=== PATIENT | female | born 1990 | race Asian ===

== ENCOUNTER 2021-09-25 20:48 | Inpatient (IN) | payer BC ==
[~2021-09-25] VITALS: Ht 170.2 cm; Wt 55.3 kg
[2021-09-25] MEDS ORDERED: ONDANSETRON HCL/PF 4 MG/2 ML VIAL ONE (22:43)
[2021-09-25 22:57] LABS: BASOPHILS % (AUTO) 0.2 % (0.0-2.0); EOSINOPHILS % (AUTO) 0.2 % (0.0-6.0); HEMATOCRIT 42 % (33-45); HEMOGLOBIN 14.2 g/dL (11.5-14.8); LYMPHOCYTES # (AUTO) 0.7 K/uL (0.8-4.8); LYMPHOCYTES % (AUTO) 3.5 % (20.0-44.0); MEAN CORPUSCULAR HGB CONC 34 g/dl (31.0-36.0); MEAN CORPUSCULAR VOLUME 94 fL (82-100); MONOCYTES # (AUTO) 1.3 K/uL (0.1-1.30); MONOCYTES % (AUTO) 6.5 % (2.0-12.0); NEUTROPHILS # (AUTO) 17.9 K/uL (1.8-8.9); NEUTROPHILS % (AUTO) 89.6 % (43.0-81.0); PLATELET COUNT (AUTO) 279 K/uL (150-450); RED BLOOD CELL COUNT(AUTO) 4.49 MIL/uL (4.0-5.2); WHITE BLOOD COUNT (AUTO) 19.9 K/uL (4.3-11.0)
[2021-09-25 22:59] LABS: BILIRUBIN,URINE MODERATE (NEGATIVE); COLOR,URINE DARK YELLOW (YELLOW); LEUKOCYTE ESTERASE ,URINE NEGATIVE (NEGATIVE); NITRITE, URINE NEGATIVE (NEGATIVE); PROTEIN,URINE 30 mg/dl (NEGATIVE); UGLUCOSE NEGATIVE (NEGATIVE); UROBILINOGEN,URINE 0.2 EU/dL (0.2)
[2021-09-25] MEDS ORDERED: ONDANSETRON HCL/PF 4 MG/2 ML VIAL IV ONE (23:00)
[2021-09-25] MEDS ORDERED: IV NS 0.9% 1,000 ML IV ONE (23:00)
[2021-09-25 23:24] LABS: BACTERIA,URINE Moderate /HPF (None Seen); MUCUS,URINE Many /LPF (None Seen); SQUAMOUS EPITHELIAL CELL,UR Moderate /HPF (None Seen)
[2021-09-25 23:24] LABS: ALBUMIN 3.7 g/dL (3.4-5.0); BILIRUBIN,DIRECT 0.2 mg/dL (0.0-0.2); BILIRUBIN,TOTAL 0.9 mg/dL (0.2-1.0); CALCIUM, SERUM 9.5 mg/dL (8.5-10.1); CREATININE 1.2 mg/dL (0.6-1.3); POTASSIUM 3.4 mmol/L (3.5-5.1); TOTAL PROTEIN, SERUM 8.2 g/dL (6.4-8.2)
[2021-09-26] MEDS ORDERED: MORPHINE SULFATE INJ 2 MG/ML DISP.SYRIN IV PRN (01:30)
[2021-09-26] MEDS ORDERED: IV NS 0.9% 1,000 ML IV SCH (01:30)
[2021-09-26] MEDS ORDERED: ONDANSETRON HCL/PF 4 MG/2 ML VIAL IVP PRN (01:30)
[2021-09-26] MEDS ORDERED: ACETAMINOPHEN 325 MG TABLET PO PRN (01:30)
[2021-09-26] MEDS ORDERED: CEFTRIAXONE 1GM BAG (ER ONLY) 1 GM/50 ML PIGGYBACK IV ONE (02:00)
[2021-09-26] MEDS ORDERED: CEFTRIAXONE 1GM BAG (ER ONLY) 50 ML IV ONE (03:01)
[2021-09-26] MEDS ORDERED: MORPHINE SULFATE INJ 2 MG/ML DISP.SYRIN ONE (03:02)
[2021-09-26] MEDS ORDERED: ZOSYN IVPB 3.375 G in IV D5W 50ml IV SCH (03:30)
[2021-09-26] MEDS ORDERED: PIPERACILLIN /TAZOBACTAM 3.375 G VIAL IV ONE (03:33)
[2021-09-26] MEDS ORDERED: oxyCODONE/APAP (5/325 MG) 1 UDTAB TABLET ONE (03:57)
[2021-09-26] MEDS ORDERED: oxyCODONE/APAP (5/325 MG) 1 UDTAB TABLET PO ONE (04:30)
[2021-09-26] MEDS ORDERED: ANESTHESIA TRAY IN PYXIS 1 EA TRAY MC ONE (06:54)
[2021-09-26] MEDS ORDERED: BUPIVACAINE MPF W/EPI 0.25% 30 ML VIAL ONE (06:54)
[2021-09-26] MEDS ORDERED: FENTANYL PF 100MCG/2ML AMPUL ONE ×3 (07:03→09:05)
[2021-09-26] MEDS ORDERED: ROCURONIUM BROMIDE 50 MG/5 ML ONE (07:03)
[2021-09-26] MEDS ORDERED: MIDAZOLAM HCL 2 MG/2ML VIAL ONE (07:03)
[2021-09-26] MEDS ORDERED: ONDANSETRON HCL/PF 4 MG/2 ML VIAL ONE (08:44)
[2021-09-26] MEDS: ENOXAPARIN SODIUM 40 MG/0.4 ML DISP.SYRIN SQ SCH (09:00)
[2021-09-26] MEDS ORDERED: SCOPOLAMINE PATCH 1 MG/72HR TD ONE (09:30)
[2021-09-26] MEDS: MORPHINE SULFATE INJ 2 MG/ML DISP.SYRIN IV PRN ×4 (10:59→18:36)
[2021-09-26] MEDS: ZOSYN IVPB 3.375 G in IV D5W 50ml IV SCH ×2 (12:12→17:43)
[2021-09-26] MEDS: IV NS 0.9% 1,000 ML IV PRN (15:49)
[2021-09-26 16:00] VITALS: BP 107/74
[2021-09-26 20:00] VITALS: BP 106/71
[2021-09-26] MEDS: KETOROLAC TROMETHAMINE INJ 30 MG/ML VIAL IV PRN (21:06)
[2021-09-26] MEDS: HYDROCODONE/APAP 10/325MG TABLET PO PRN (22:55)
[2021-09-26] MEDS ORDERED: MENTHOL/CETYLPYRD (CEPACOL) 1 LOZ LOZENGE PO PRN (23:30)
[2021-09-26] MEDS ORDERED: MAGNESIUM OXIDE 400 MG TABLET PO SCH (23:30)
[2021-09-27] MEDS: IV NS 0.9% 1,000 ML IV PRN ×2 (00:12→17:26)
[2021-09-27] MEDS: ZOSYN IVPB 3.375 G in IV D5W 50ml IV SCH ×4 (00:12→17:25)
[2021-09-27] MEDS ORDERED: ZOLPIDEM TARTRATE 5 MG TABLET PO PRN (00:30)
[2021-09-27] MEDS: MORPHINE SULFATE INJ 2 MG/ML DISP.SYRIN IV PRN ×2 (02:19→06:24)
[2021-09-27 06:54] LABS: BASOPHILS % (AUTO) 0.1 % (0.0-2.0); EOSINOPHILS % (AUTO) 0.1 % (0.0-6.0); HEMATOCRIT 31 % (33-45); HEMOGLOBIN 10.6 g/dL (11.5-14.8); LYMPHOCYTES # (AUTO) 0.6 K/uL (0.8-4.8); LYMPHOCYTES % (AUTO) 4.2 % (20.0-44.0); MEAN CORPUSCULAR HGB CONC 34 g/dl (31.0-36.0); MEAN CORPUSCULAR VOLUME 95 fL (82-100); MONOCYTES # (AUTO) 0.9 K/uL (0.1-1.30); MONOCYTES % (AUTO) 6.5 % (2.0-12.0); NEUTROPHILS # (AUTO) 11.9 K/uL (1.8-8.9); NEUTROPHILS % (AUTO) 89.1 % (43.0-81.0); PLATELET COUNT (AUTO) 224 K/uL (150-450); RED BLOOD CELL COUNT(AUTO) 3.28 MIL/uL (4.0-5.2); WHITE BLOOD COUNT (AUTO) 13.4 K/uL (4.3-11.0)
[2021-09-27] MEDS ORDERED: FLUO20CA36 PO (07:38)
[2021-09-27] MEDS ORDERED: BUPR-54 PO (07:38)
[2021-09-27] MEDS ORDERED: ZOLP10TA2 PO (07:38)
[2021-09-27 07:48] LABS: ALBUMIN 2.4 g/dL (3.4-5.0); BILIRUBIN,TOTAL 0.3 mg/dL (0.2-1.0); CALCIUM, SERUM 8.5 mg/dL (8.5-10.1); CREATININE 0.6 mg/dL (0.6-1.3); PHOSPHORUS 2.9 mg/dL (2.5-4.9); POTASSIUM 3.6 mmol/L (3.5-5.1)
[2021-09-27 08:16] VITALS: BP 108/69
[2021-09-27] MEDS: ENOXAPARIN SODIUM 40 MG/0.4 ML DISP.SYRIN SQ SCH (08:52)
[2021-09-27] MEDS: HYDROCODONE/APAP 10/325MG TABLET PO PRN ×2 (08:59→17:25)
[2021-09-27] MEDS: KETOROLAC TROMETHAMINE INJ 30 MG/ML VIAL IV PRN ×2 (12:04→19:08)
[2021-09-27 16:10] VITALS: BP 109/65
[2021-10-03] MEDS ORDERED: CIPR-262 PO (14:45)
[2021-10-03] MEDS ORDERED: METR500T PO (14:45)
== END 2021-09-27 20:00 | disposition left against medical advice (07) | DRG 853 ==
LOC: ER 20:50 → TRANSITION 09-26 02:52 → UNDOADMIN 09-26 02:52 → MED 09-26 07:32
PROVIDERS: ADMIT Student in an Organized Health Care Education/Training Program; ATTEND Student in an Organized Health Care Education/Training Program
PROC: 0DTJ4ZZ Resection of Appendix, Percutaneous Endoscopic Approach (ICD-10-PCS; principal; 2021-09-26)
DX: A41.9 Sepsis, unspecified organism (principal); K35.32 Acute appendicitis with perforation, localized peritonitis, and gangrene, without abscess; E87.1 Hypo-osmolality and hyponatremia; Z20.822 Contact with and (suspected) exposure to COVID-19; E87.6 Hypokalemia
CPT/HCPCS: 36415; 74018; 80053-TC; 80076-TC; 81001; 83605-TC; 83690-TC; 83735-TC; 84100-TC; 84703-TC; 85025-TC; 87070-TC; 87075-TC; 87081-TC; 87086-TC; 87186-TC; 88304-TC; C9803; G0378; J0330; J0690; J0696; J1100; J1650; J1885; J2250; J2270; J2405; J2543; J2704; J3010; J3490; J7030; J7060

== ENCOUNTER 2021-10-01 13:27 | Inpatient (IN) | payer BC ==
[~2021-10-01] VITALS: Ht 170.2 cm; Wt 58.5 kg
[~2021-10-01 13:27] MED LIST: BUPR-54 PO; FLUO20CA36 PO; ZOLP10TA2 PO
--- NOTE | 2021-10-01 13:40 | NUR ---
To ER bed 9, "Had Appy surgery last 09/26 Still having pain on site. Feel Nauseous/vomit", p/s 02/18, breathing even and non labored, made comfortable, awaiting md mccoy
[2021-10-01 14:23] LABS: BASOPHILS # (AUTO) 0.1 K/uL (0.0-0.2); BASOPHILS % (AUTO) 0.6 % (0.0-2.0); EOSINOPHILS % (AUTO) 1.2 % (0.0-6.0); HEMATOCRIT 38 % (33-45); HEMOGLOBIN 12.6 g/dL (11.5-14.8); LYMPHOCYTES # (AUTO) 1.1 K/uL (0.8-4.8); LYMPHOCYTES % (AUTO) 11.2 % (20.0-44.0); MEAN CORPUSCULAR HGB CONC 33 g/dl (31.0-36.0); MEAN CORPUSCULAR VOLUME 95 fL (82-100); MONOCYTES % (AUTO) 10.2 % (2.0-12.0); NEUTROPHILS # (AUTO) 7.5 K/uL (1.8-8.9); NEUTROPHILS % (AUTO) 76.8 % (43.0-81.0); PLATELET COUNT (AUTO) 375 K/uL (150-450); RED BLOOD CELL COUNT(AUTO) 3.97 MIL/uL (4.0-5.2); WHITE BLOOD COUNT (AUTO) 9.8 K/uL (4.3-11.0)
[2021-10-01] MEDS ORDERED: ONDANSETRON HCL/PF 4 MG/2 ML VIAL IVP ONE (14:30)
[2021-10-01] MEDS ORDERED: IV NS 0.9% 1,000 ML BAG IV ONE (14:30)
[2021-10-01] MEDS ORDERED: diphenhydrAMINE HCL 50 MG/ML VIAL IV ONE (14:30)
[2021-10-01] MEDS ORDERED: diphenhydrAMINE HCL 50 MG/ML VIAL ONE (14:35)
[2021-10-01] MEDS ORDERED: ONDANSETRON HCL/PF 4 MG/2 ML VIAL ONE (14:35)
[2021-10-01 14:37] LABS: BILIRUBIN,URINE NEGATIVE (NEGATIVE); COLOR,URINE YELLOW (YELLOW); LEUKOCYTE ESTERASE ,URINE TRACE (NEGATIVE); NITRITE, URINE NEGATIVE (NEGATIVE); PROTEIN,URINE NEGATIVE (NEGATIVE); UGLUCOSE NEGATIVE (NEGATIVE); UROBILINOGEN,URINE 0.2 EU/dL (0.2)
[2021-10-01] MEDS ORDERED: CT SWABBABLE VALVE TRANS SET 1 EA INFUS.SET MC ONE (14:39)
[2021-10-01] MEDS ORDERED: IOHEXOL-300 100 ML VIAL IV ONE (14:39)
[2021-10-01] MEDS ORDERED: IV NS 0.9% 250 ML IV ONE (14:40)
[2021-10-01 14:50] LABS: BACTERIA,URINE 1+ /HPF (None Seen); RBC,URINE 0-2 /HPF (0-2)
--- NOTE | 2021-10-01 14:51 | NUR ---
The patient is taken to CT via gurney.
[2021-10-01 14:55] LABS: CALCIUM, SERUM 8.6 mg/dL (8.5-10.1); CREATININE 0.6 mg/dL (0.6-1.3); POTASSIUM 3.1 mmol/L (3.5-5.1)
--- NOTE | 2021-10-01 14:58 | NUR ---
The patient is back from CT via [facility]
[2021-10-01 15:01] LABS: ALBUMIN 2.9 g/dL (3.4-5.0); BILIRUBIN,DIRECT 0.1 mg/dL (0.0-0.2); BILIRUBIN,TOTAL 0.2 mg/dL (0.2-1.0); TOTAL PROTEIN, SERUM 7.1 g/dL (6.4-8.2)
[2021-10-01] MEDS ORDERED: POTASSIUM CHLORIDE 20 MEQ TAB.PRT.SR PO ONE ×2 (15:28→15:30)
--- NOTE | 2021-10-01 16:00 | NUR ---
CALLED [facility] FOR READ.
--- NOTE | 2021-10-01 16:57 | NUR ---
CALLED SURGERY DR. DALAL SPEAKING WITH [facility]LE[facility] CORRIGAN.
[2021-10-01] MEDS ORDERED: KETOROLAC TROMETHAMINE INJ 30 MG/ML VIAL IV ONE (17:00)
[2021-10-01] MEDS ORDERED: METRONIDAZOLE 500MG/ NS 100ML 500 MG in PREMIX 1 EA IV SCH (17:00)
[2021-10-01] MEDS ORDERED: KETOROLAC TROMETHAMINE 15 MG/ML VIAL ONE (17:00)
--- NOTE | 2021-10-01 17:00 | NUR ---
COVID ANTIGEN SWAB DONE AND SENT TO THE LAB
[2021-10-01] MEDS ORDERED: METR-147 PO (17:08)
[2021-10-01] MEDS ORDERED: HYDR-3972 PO (17:08)
[2021-10-01] MEDS ORDERED: CIPR500T5 PO (17:08)
[2021-10-01] MEDS ORDERED: CIPROFLOXACIN IV RTU 200 ML IV ONE (17:16)
[2021-10-01] MEDS ORDERED: METRONIDAZOLE 500MG/ NS 100ML 100 ML IV ONE (17:16)
[2021-10-01] MEDS: CIPROFLOXACIN IV RTU 400 MG in PREMIX 1 EA IV SCH ×2 (17:18→18:20)
--- NOTE | 2021-10-01 18:21 | NUR ---
GOT BED 314-1 PENDING COVID RESULT.
--- NOTE | 2021-10-01 18:25 | NUR ---
FOLLOWED UP COVID RESULTS, STILL RUNNING PER LAB
--- NOTE | 2021-10-01 19:02 | NUR ---
attempted to give report, NOC RN is getting report from day shift nurse, will call again
--- NOTE | 2021-10-01 19:25 | NUR ---
REPORT GIVEN TO MAURICE GÓMEZ FOR ASHISH
--- NOTE | 2021-10-01 20:26 | NUR ---
PT TRANSFERRED TO 314-1 VIA ACLS PROTOCOL. VSS.
[2021-10-01] MEDS ORDERED: IV NS 0.9% 1,000 ML IV PRN (21:00)
[2021-10-01] MEDS ORDERED: MAGNESIUM HYDROXIDE 30 ML UDC PO PRN (21:00)
[2021-10-01] MEDS ORDERED: ONDANSETRON HCL/PF 4 MG/2 ML VIAL IVP PRN (21:00)
[2021-10-01] MEDS ORDERED: HYDROCODONE/APAP 5/325MG TABLET PO PRN (21:00)
[2021-10-01] MEDS ORDERED: Z GUARD REMEDY 4 OZ OINT TP PRN (21:00)
[2021-10-01] MEDS ORDERED: MAG HYDROX/AL HYDROX/SIMETH 30 ML UDC PO PRN (21:00)
[2021-10-01] MEDS ORDERED: HYDROMORPHONE 1 MG/1 ML DISP.SYRIN IV PRN (21:00)
--- NOTE | 2021-10-01 21:00 | NUR ---
MS RN NOTES PT GIVEN PRN DILAUDID FOR PAIN WILL CONTINUE TO MONITOR.
[2021-10-01 21:35] VITALS: BP_SYST 113; BP_SYST 128; BP_DIAS 67; BP_DIAS 73
[2021-10-01] MEDS ORDERED: PIPERACILLIN /TAZOBACTAM 3.375 G VIAL IV ONE (21:36)
[2021-10-01] MEDS: ZOSYN IVPB 3.375 G in IV D5W 50ml IV SCH (21:37)
--- NOTE | 2021-10-01 21:40 | NUR ---
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 PT HAVING NO RESPIRATORY DISTRESS AT THIS TIME BUT IS HAVING 6/10 ABDOMINAL PAIN NOTED PT ABDOMEN IS TENDER UPON TOUCH PT WITH HYPOACTIVE BOWEL SOUNDS. PT NOTED WITH SURGICAL SCARS AND LAUREANO ON THE ABDOMEN WILL TAKE PHOTOS FOR RECORD. PT BELONGINGS CHECKED BELONGINGS LIST SIGNED BY PT. PT ORIENTED TO ROOM AND UNIT. PT NOTED WITH IV ACCESS ON THE RIGHT AC 18G RUNNING NS @ 75 ML/HR. WILL CONTACT [employer] BRUSH MAKER FOR PAIN MEDICATION FOR THE PT. WILL CONTINUE TO MONITOR. Addendum: 10/02/21 at 0024 by SHU GUSTAFSON RN no photo taken of surgical site Addendum: 10/02/21 at 0647 by SHU GUSTAFSON RN PT NOTED WITH LEFT ARM SCAB PER PT IT IS VERY PAINFUL. WILL TAKE A PHOTO AND PLACE IN CHART . WOUND CONSULT ORDERED.
[2021-10-01] MEDS ORDERED: FLUOXETINE HCL 20 MG CAPSULE PO SCH (22:00)
[2021-10-01] MEDS: IV NS 0.9% 1,000 ML IV PRN (23:32)
[2021-10-02] MEDS ORDERED: PIPERACILLIN /TAZOBACTAM 3.375 G in IV D5W 50 ML IV SCH ×2
[2021-10-02] MEDS: ZOLPIDEM TARTRATE 10 MG TABLET PO PRN (00:22)
--- NOTE | 2021-10-02 00:24 | NUR ---
MS RN NOTES PT REQUESTED AMBIEN FOR INSOMNIA MEDICATION GIVEN AND TOLERATED WELL. WILL CONTINUE TO MONITOR.
[2021-10-02] MEDS ORDERED: PIPERACILLIN /TAZOBACTAM 3.375 G VIAL IV ONE (02:37)
[2021-10-02] MEDS: ZOSYN IVPB 3.375 G in IV D5W 50ml IV SCH (02:38)
[2021-10-02] MEDS: HYDROMORPHONE INJ 2 MG/ML DISP.SYRIN IV PRN ×5 (03:28→23:53)
--- NOTE | 2021-10-02 03:32 | NUR ---
MS RN NOTES PRN DILAUDID GIVEN FOR PAIN TOLERATED WELL. WILL CONTINUE TO MONITOR.
--- NOTE | 2021-10-02 06:36 | NUR ---
MS RN NOTES A/O X4 . PT NOTED WITH IV ACCESS ON THE RIGHT AC 18G RUNNING NS @ 75 ML/HR. NO PAIN OR DISCOMFORT NOTED AT THIS TIME. CALL LIGHT WITHIN REACH WILL ENDORSE CARE TO DAY SHIFT NURSE.
[2021-10-02 07:26] LABS: BASOPHILS % (AUTO) 0.5 % (0.0-2.0); EOSINOPHILS % (AUTO) 2.2 % (0.0-6.0); HEMATOCRIT 32 % (33-45); HEMOGLOBIN 10.9 g/dL (11.5-14.8); LYMPHOCYTES # (AUTO) 1.1 K/uL (0.8-4.8); LYMPHOCYTES % (AUTO) 14.1 % (20.0-44.0); MEAN CORPUSCULAR HGB CONC 34 g/dl (31.0-36.0); MEAN CORPUSCULAR VOLUME 94 fL (82-100); MONOCYTES # (AUTO) 0.9 K/uL (0.1-1.30); MONOCYTES % (AUTO) 10.9 % (2.0-12.0); NEUTROPHILS # (AUTO) 5.8 K/uL (1.8-8.9); NEUTROPHILS % (AUTO) 72.3 % (43.0-81.0); PLATELET COUNT (AUTO) 334 K/uL (150-450); RED BLOOD CELL COUNT(AUTO) 3.38 MIL/uL (4.0-5.2)
--- NOTE | 2021-10-02 07:30 | NUR ---
MS RN OPENING NOTES RECEIVED PATIENT ON BED AWAKE AND A/O X4. ON ROOM AIR TOLERATING WELL. NO SOB NOTED. NOT IN DISTRESS. WITH COMPLAINTS OF PAIN ON THE ABDOMEN AT THE SCALE OF 8/10. COMFORT MEASURES PROVIDED. WITH IV ACCESS AT RIGHT AC G18 WITH IVF NS AT 100ML/HR INFUSING WELL. SAFETY MEASURES IN PLACED. CALL LIGHT WITHIN REACH. BED ON LOWEST LOCKED POSITION, SIDE RAILS UP X2. WILL CONTINUE TO MONITOR.
[2021-10-02] MEDS: PIPERACILLIN /TAZOBACTAM 3.375 G in IV D5W 100 ML IV SCH ×2 (08:01→17:05)
[2021-10-02 08:10] VITALS: BP 119/75
[2021-10-02 08:43] LABS: CREATININE 0.6 mg/dL (0.6-1.3); PHOSPHORUS 3.2 mg/dL (2.5-4.9); POTASSIUM 3.6 mmol/L (3.5-5.1)
--- NOTE | 2021-10-02 09:04 | NUR ---
WOUND CARE CONSULT: PT PRESENTS WITH DRY SCRATCHES TO LEFT ARM, PRESENT ON ADMISSION. PT STATES WAS PREVIOUSLY SCRATCHING HER SKIN. NO DRAINAGE OR ERYTHEMA NOTED. RECOMMENDATIONS MADE FOR SKIN PROTECTION AND DISCUSSED WITH NURSING STAFF. IN AGREEMENT WITH PLAN OF CARE.
[2021-10-02 09:06] LABS: MAGNESIUM 2.4 mg/dL (1.8-2.4)
[2021-10-02] MEDS: BUPROPION XL 150 MG TAB.ER.24 PO SCH (09:33)
[2021-10-02] MEDS: MINERAL OIL/PETROL OINT 396 GM JAR TP SCH (10:53)
--- NOTE | 2021-10-02 14:22 | NUR ---
spoke to patient, explained the procedure about inserting a catheter through buttocks. She stated that she did not want to proceed with procedure
[2021-10-02] MEDS: ACETAMINOPHEN 325 MG TABLET PO PRN (14:58)
[2021-10-02] MEDS ORDERED: FLUOXETINE HCL 20 MG CAPSULE PO SCH (16:00)
[2021-10-02 16:33] VITALS: BP 117/85
[2021-10-02] MEDS: IV NS 0.9% 1,000 ML IV PRN (17:09)
--- NOTE | 2021-10-02 19:25 | NUR ---
MS RN NOTES A/O X4 . PT NOTED WITH IV ACCESS ON THE RIGHT AC 18G RUNNING NS @ 75 ML/HR. NO PAIN OR DISCOMFORT NOTED AT THIS TIME.NO PAIN OR DISCOMFORT PT TO BE NPO AFTER MIDNIGHT FOR CT GUIDED ABSCESS DRAINAGE. PER PT WOULD LIKE TO SPEAK WITH THE DOCTOR IN THE MORNING REGARDING PROCEDURE BEFORE SIGNING CONSENT.
--- NOTE | 2021-10-02 19:30 | NUR ---
MS RN CLOSING NOTES PATIENT ON BED AWAKE AND A/O X4. ON ROOM AIR TOLERATING WELL. NO SOB NOTED. NOT IN DISTRESS. WITH NO COMPLAINTS OF PAIN OR DISCOMFORT AT THIS TIME. WITH IV ACCESS AT RIGHT AC G18 WITH IVF NS AT 100ML/HR INFUSING WELL. DUE MEDS GIVEN. FOR CT GUIDED PERCUTANEOUS DRAINAGE ABSCESS WITH CATH TOMORROW. STILL TO OBTAIN CONSENT FOR PATIENT NEEDS TIME TO THINK AND WANTS TO SPEAK WITH THE DOCTOR FIRST BEFORE SIGNING THE CONSENT. SAFETY MEASURES IN PLACED. CALL LIGHT WITHIN REACH. BED ON LOWEST LOCKED POSITION, SIDE RAILS UP X2. WILL ENDORSE TO NEXT SHIFT FOR ASHISH.
[2021-10-02 20:00] VITALS: BP 111/78
--- NOTE | 2021-10-03 | NUR ---
MS RN NOTES PRN PAIN MED GIVEN FOR PAIN WILL CONTINUE TO MONITOR.
[2021-10-03] MEDS: ZOLPIDEM TARTRATE 10 MG TABLET PO PRN (00:39)
--- NOTE | 2021-10-03 00:43 | NUR ---
MS RN NOTES PRN AMBIEN GIVEN FOR INSOMNIA TOLERATED WELL. WILL CONTINUE TO MONITOR.
[2021-10-03] MEDS: PIPERACILLIN /TAZOBACTAM 3.375 G in IV D5W 100 ML IV SCH ×2 (02:09→09:38)
[2021-10-03] MEDS: HYDROMORPHONE INJ 2 MG/ML DISP.SYRIN IV PRN (05:47)
--- NOTE | 2021-10-03 05:53 | NUR ---
MS RN NOTES PT GIVEN PRN DILAUDID FOR PAIN TOLERATED WELL. WILL CONTINUE TO MONITOR.
--- NOTE | 2021-10-03 06:42 | NUR ---
MS RN CLOSING NOTES PATIENT ON BED AWAKE AND A/O X4. ON ROOM AIR TOLERATING WELL. NO SOB NOTED. NOT IN DISTRESS. WITH NO COMPLAINTS OF PAIN OR DISCOMFORT AT THIS TIME. WITH IV ACCESS AT RIGHT AC G18 WITH IVF NS AT 100ML/HR INFUSING WELL. DUE MEDS GIVEN. FOR CT GUIDED PERCUTANEOUS DRAINAGE ABSCESS WITH CATH TODAY. STILL TO OBTAIN CONSENT FOR PATIENT NEEDS TIME TO THINK AND WANTS TO SPEAK WITH THE DOCTOR FIRST BEFORE SIGNING THE CONSENT. SAFETY MEASURES IN PLACED. CALL LIGHT WITHIN REACH. BED ON LOWEST LOCKED POSITION, SIDE RAILS UP X2. WILL ENDORSE TO NEXT SHIFT FOR ASHISH.
--- NOTE | 2021-10-03 07:39 | NUR ---
RN OPENING NOTES PATIENT AWAKE IN BED RESTING. A/O X4. NO S/S OF PAIN NOTED AT THIS TIME. ON ROOM AIR, NO DISTRESS OR SHORTNESS OF BREATH NOTED. IV ACCESS RAC #18G, INTACT, PATENT AND FLUSHING WELL. FALL AND SAFETY MEASURES IN PLACE, BED ALARM ON, BED IN LOW LOCK POSITION CALL LIGHT AND TABLE WITHIN EASY REACH, SIDE RAIL UP X2. WILL CONTINUE TO MONITOR.
[2021-10-03] MEDS ORDERED: Fluoxetine 10 mg capsule PO SCH (09:00)
[2021-10-03] MEDS: BUPROPION XL 150 MG TAB.ER.24 PO SCH (09:05)
[2021-10-03] MEDS: MINERAL OIL/PETROL OINT 396 GM JAR TP SCH (09:08)
[2021-10-03 09:34] VITALS: BP 111/56
[2021-10-03] MEDS: ACETAMINOPHEN 325 MG TABLET PO PRN (09:49)
--- NOTE | 2021-10-03 12:00 | NUR ---
RN NOTE PATIENT ASKED FOR PAIN MEDICATION DILAUDID, 2MG OF DILAUDID WAS TAKEN OUT FROM THE PYXES BUT 1MG WAS WAISTED WITH STEVE SINCE PATIENT ORDER IS 1MG. WHEN MEDICATION WAS GOING TO BE ADMINISTERED PATIENT REFUSED MEDICATION AND REMOVED IV. PHARMACY WAS CALLED AND JENNIFER AND MARÍA ELENA CAME TO TRIED TO RETURNED OR WASTE MEDICATION SINCE IT DOES NOT SHOW IN THE PYXIS, WAS NOT ABLE TO DUE ON THE PYXIS. JENNIFER SAID TO WAIST THE OTHER 1MG, THE REMAINDER 1MG OF DILAUDID WAS WAISTED WITH STEVE WELL.
[2021-10-03] MEDS ORDERED: HYDROMORPHONE 1 MG/1 ML DISP.SYRIN IV PRN (12:30)
[2021-10-03] MEDS ORDERED: IBUPROFEN 600 MG TABLET PO PRN (13:00)
[2021-10-03] MEDS ORDERED: METR500T PO (14:45)
[2021-10-03] MEDS ORDERED: CIPR-262 PO (14:45)
--- NOTE | 2021-10-03 16:21 | NUR ---
TUBE FILLER NOTE PATIENT DISCHARGE IN STABLE MEDICAL CONDITIONS. A/O X4. V/S TAKEN, STABLE AND RECORDED. NO IV ACCESS. PATIENT REFUSED SKIN ASSESSMENT AND PICTURES, PATIENT WAS ON A AGARWAL TO LEAVE THE HOSPITAL, SHE WAS WORRY ABOUT HER PET DOG THAT WAS AT HOME. NAME ARM BAND REMOVED. ALL BELONGINGS CHECKED AND SIGNED. HEALTH TEACHING AND DISCHARGE INSTRUCTIONS GIVEN AND VERBALIZED UNDERSTANDING. PATIENT LEFT UNIT AMBULATING WITH NO SIGNS OF DISTRESS, ACCOMPANIED BY BLOOD BANK LABORATORY TECHNICIAN TO THE LOBBY. CHARGE NURSE AWARE OF DISCHARGED.
== END 2021-10-03 15:35 | disposition home or self-care (01) | DRG 602 ==
LOC: ER 13:28 → TELE 20:05 → MED 21:31
PROVIDERS: ADMIT Nurse Practitioner Acute Care; ATTEND Internal Medicine
DX: L02.211 Cutaneous abscess of abdominal wall (principal); K65.1 Peritoneal abscess; E44.0 Moderate protein-calorie malnutrition; K56.7 Ileus, unspecified; E87.6 Hypokalemia; K52.9 Noninfective gastroenteritis and colitis, unspecified; Z53.29 Procedure and treatment not carried out because of patient's decision for other reasons; E88.09 Other disorders of plasma-protein metabolism, not elsewhere classified; L29.9 Pruritus, unspecified
CPT/HCPCS: 36415; 80048-TC; 80076-TC; 81001; 83605-TC; 83690-TC; 83735-TC; 84100-TC; 84703-TC; 85025-TC; 87040-TC; 87045-TC; 87081-TC; A4216; C9803; G0378; J0744; J1170; J1200; J1885; J2405; J2543; J7030; J7050; J7060; Q9967